=== PATIENT | male | born 1935 | race Caucasian/White ===

== ENCOUNTER 2016-12-02 16:42 | Inpatient (IN) | payer MEDICARE ==
[2016-12-02 17:15] LABS: BASOPHIL 0.4 % (0-2); EOSINOPHIL 2.5 % (0-7); HCT 34.1 % (42.0-52.0); HGB 11.5 g/dl (13.2-18.0); LYMPHOCYTE 9.1 % (15-48); MCH 31.4 pg (25.0-31.0); MCHC 33.7 g/dL (32.0-36.0); MCV 93.2 fL (78.0-100.0); MONOCYTE 12.8 % (0-12); MPV 10.2 fL (6.0-9.5); NEUTROPHIL 75.2 % (41-80); PLT 176 K/uL (150-400); RBC 3.66 M/uL (4.70-6.00); RDW 13.4 % (11.5-14.0); WBC 2.4 K/uL (4.0-10.5)
[2016-12-02 17:24] LABS: LACTIC ACID 1.6 mmol/L (0.5-2.2)
[2016-12-02 17:25] LABS: CREATININE 0.9 mg/dL (0.7-1.2)
[2016-12-02 18:59] LABS: ALBUMIN 4.6 g/dL (3.4-4.8); BILIRUBIN - TOTAL 0.3 mg/dL (0.1-1.0); GLOBULIN (CALCULATION) 2.4 g/dL (2.2-4.2)
[2016-12-02 19:11] LABS: BILIRUBIN - DIRECT 0.2 mg/dL (0.0-0.2)
[2016-12-02 20:30] LABS: BILIRUBIN NEGATIVE (NEGATIVE); BLOOD TRACE-LYSED Ery/uL (NEGATIVE); CLARITY CLEAR (CLEAR); COLOR YELLOW (YELLOW); GLUCOSE (U) TRACE mg/dL (NORMAL); KETONE (U) TRACE mg/dL (NEGATIVE); LEUKOCYTES NEGATIVE Leu/uL (NEGATIVE); NITRITE NEGATIVE (NEGATIVE); PROTEIN NEGATIVE (NEGATIVE); SPECIFIC GRAVITY >=1.030 (1.001-1.030)
[2016-12-02 20:35] LABS: SQUAMOUS EPITHELIAL CELLS RARE; URINARY RBC RARE
[2016-12-03 05:19] LABS: BASOPHIL 0.4 % (0-2); EOSINOPHIL 0.8 % (0-7); HCT 29.8 % (42.0-52.0); LYMPHOCYTE 15.5 % (15-48); MCH 31.3 pg (25.0-31.0); MCHC 33.6 g/dL (32.0-36.0); MCV 93.4 fL (78.0-100.0); MONOCYTE 21.4 % (0-12); MPV 9.7 fL (6.0-9.5); NEUTROPHIL 61.9 % (41-80); PLT 148 K/uL (150-400); RBC 3.19 M/uL (4.70-6.00); RDW 13.1 % (11.5-14.0); WBC 2.5 K/uL (4.0-10.5)
[2016-12-03 05:40] LABS: MAGNESIUM 1.39 mg/dL (1.40-2.10); POTASSIUM 3.5 mmol/L (3.5-5.1)
[2016-12-03 05:46] LABS: BAND 8 % (0-10)
[2016-12-03 05:47] LABS: EOSINOPHIL(M) 12 % (0-7); FT4 (FREE T4) 1.28 ng/dL (0.93-1.70); LYMPHOCYTE(M) 17 % (15-48); MONOCYTE(M) 11 % (0-12); NEUTROPHILS(M) 63 % (41-80); PLATELET ESTIMATE NORMAL; TSH (THYROID STIM HORMONE) 1.71 uIU/mL (0.270-4.200)
[2016-12-03 05:48] LABS: PLATELET MORPHOLOGY NORMAL
[2016-12-03 10:48] LABS: IRON 21 ug/dL (44-196); IRON % SATURATION 7 %SAT (20-50); RETICULOCYTE COUNT 0.9 % (1.0-2.0); TIBC (TOTAL IRON + UIBC) 283 U/L (228-428); UIBC 262 ug/dL (112-346)
[2016-12-04 05:48] LABS: BASOPHIL 0.4 % (0-2); EOSINOPHIL 4.3 % (0-7); HCT 28.2 % (42.0-52.0); HGB 9.6 g/dl (13.2-18.0); LYMPHOCYTE 20.3 % (15-48); MCH 31.6 pg (25.0-31.0); MCV 92.8 fL (78.0-100.0); MONOCYTE 19.6 % (0-12); MPV 10.3 fL (6.0-9.5); NEUTROPHIL 55.4 % (41-80); PLT 143 K/uL (150-400); RBC 3.04 M/uL (4.70-6.00); RDW 12.9 % (11.5-14.0)
[2016-12-04 05:49] LABS: WBC 2.8 K/uL (4.0-10.5)
[2016-12-04 06:05] LABS: BAND 6 % (0-10); EOSINOPHIL(M) 3 % (0-7); LYMPHOCYTE(M) 24 % (15-48); MONOCYTE(M) 12 % (0-12); NEUTROPHILS(M) 55 % (41-80); PLATELET ESTIMATE NORMAL; PLATELET MORPHOLOGY NORMAL
[2016-12-04 06:10] LABS: CREATININE 0.9 mg/dL (0.7-1.2); MAGNESIUM 1.35 mg/dL (1.40-2.10); POTASSIUM 3.6 mmol/L (3.5-5.1)
[2016-12-04] MEDS ORDERED: METFORMIN HCL1000 MG PO (13:29)
[2016-12-04] MEDS ORDERED: IRON PO (13:29)
[2016-12-04] MEDS ORDERED: ZESTRIL40 MG PO (13:29)
[2016-12-04] MEDS ORDERED: TRADJENTA5 MG PO (13:29)
[2016-12-04] MEDS ORDERED: ZOCOR40 M1 PO (13:30)
[2016-12-04] MEDS ORDERED: TOPROL XL 50 MG50 MG PO (13:30)
[2016-12-04] MEDS ORDERED: AMARYL4 MG PO (13:30)
[2016-12-04] MEDS ORDERED: HYCODAN5 ML PO (13:30)
== END 2016-12-04 12:35 | disposition home or self-care (01) | DRG 871 ==
LOC: FER 16:42 → FTCU 21:27 → FMS 12-03 13:24
PROVIDERS: Allergy & Immunology; Emergency Medicine; Internal Medicine Hematology & Oncology; Internal Medicine Nephrology; ADMIT Internal Medicine Adolescent Medicine
DX: A41.1 Sepsis due to other specified staphylococcus (principal); G93.41 Metabolic encephalopathy; J09.X2 Influenza due to identified novel influenza A virus with other respiratory manifestations; J44.0 Chronic obstructive pulmonary disease with (acute) lower respiratory infection; E11.9 Type 2 diabetes mellitus without complications; I10 Essential (primary) hypertension; F17.210 Nicotine dependence, cigarettes, uncomplicated; E78.5 Hyperlipidemia, unspecified; K21.9 Gastro-esophageal reflux disease without esophagitis; R91.8 Other nonspecific abnormal finding of lung field; J20.9 Acute bronchitis, unspecified; Z79.899 Other long term (current) drug therapy; Z83.3 Family history of diabetes mellitus; Z82.49 Family history of ischemic heart disease and other diseases of the circulatory system; Z80.9 Family history of malignant neoplasm, unspecified
CPT/HCPCS: 36415; 36600; 70450; 71020; 80048; 80076; 81001; 82607; 82728; 82803; 82962; 83540; 83550; 83605; 83735; 84439; 84443; 85025; 85044; 86403; 87040; 87077; 87088; 87804; 87899; 93005; 94010; 94640; J2405; J2543

== ENCOUNTER 2017-01-01 19:11 | Inpatient (IN) | payer MEDICARE ==
[~2017-01-01 19:11] MED LIST: AMARYL4 MG PO; HYCODAN5 ML PO; IRON PO; METFORMIN HCL1000 MG PO; TOPROL XL 50 MG50 MG PO; TRADJENTA5 MG PO; ZESTRIL40 MG PO; ZOCOR40 M1 PO
[2017-01-01 20:01] LABS: HCT 38.1 % (42.0-52.0); HGB 13.4 g/dl (13.2-18.0); MCH 31.3 pg (25.0-31.0); MCHC 35.2 g/dL (32.0-36.0); MPV 10.5 fL (6.0-9.5); RBC 4.28 M/uL (4.70-6.00); RDW 13.5 % (11.5-14.0); WBC 12.3 K/uL (4.0-10.5)
[2017-01-01 20:28] LABS: INR 1.14 (0.9-1.2); PROTHROMBIN TIME 14.2 SECONDS (11.7-14.0); PTT 25.8 SECONDS (23.2-31.4)
[2017-01-01 20:37] LABS: ALBUMIN 4.1 g/dL (3.4-4.8); BILIRUBIN - TOTAL 0.6 mg/dL (0.1-1.0); CREATININE 0.9 mg/dL (0.7-1.2); GLOBULIN (CALCULATION) 3.6 g/dL (2.2-4.2); POTASSIUM 4.6 mmol/L (3.5-5.1); TOTAL PROTEIN 7.7 g/dL (6.4-8.3)
[2017-01-01 20:43] LABS: D-DIMER 7.95 ug/mLFEU (0.00-0.41)
[2017-01-01 21:13] LABS: BILIRUBIN 2+ mg/dL (NEGATIVE); BLOOD TRACE-INTACT Ery/uL (NEGATIVE); CLARITY HAZY (CLEAR); COLOR YELLOW (YELLOW); GLUCOSE (U) 2+ mg/dL (NORMAL); KETONE (U) NEGATIVE (NEGATIVE); LEUKOCYTES NEGATIVE Leu/uL (NEGATIVE); NITRITE NEGATIVE (NEGATIVE); PROTEIN 2+ mg/dL (NEGATIVE); SPECIFIC GRAVITY >=1.030 (1.001-1.030)
[2017-01-01 21:21] LABS: AMORPHOUS URATES CRYSTALS MODERATE; MUCOUS TRACE; URINARY RBC RARE
[2017-01-02 04:40] LABS: BASOPHIL 0.3 % (0-2); EOSINOPHIL 0.3 % (0-7); HCT 34.9 % (42.0-52.0); HGB 12.3 g/dl (13.2-18.0); LYMPHOCYTE 11.3 % (15-48); MCH 31.3 pg (25.0-31.0); MCHC 35.2 g/dL (32.0-36.0); MCV 88.8 fL (78.0-100.0); MONOCYTE 12.1 % (0-12); MPV 10.1 fL (6.0-9.5); PLT 216 K/uL (150-400); RBC 3.93 M/uL (4.70-6.00); RDW 13.2 % (11.5-14.0); WBC 7.1 K/uL (4.0-10.5)
[2017-01-02 04:58] LABS: CREATININE 0.9 mg/dL (0.7-1.2); POTASSIUM 4.4 mmol/L (3.5-5.1)
[2017-01-02 05:01] LABS: CKMB 4.2 ng/mL (0.97-4.94); TROPONIN T 0.039 ng/mL
[2017-01-02 11:03] LABS: CKMB 4.01 ng/mL (0.97-4.94); TROPONIN T 0.021 ng/mL
[2017-01-03 04:18] LABS: HCT 32.9 % (42.0-52.0); HGB 11.3 g/dl (13.2-18.0); MCH 30.9 pg (25.0-31.0); MCHC 34.3 g/dL (32.0-36.0); MCV 89.9 fL (78.0-100.0); MPV 10.5 fL (6.0-9.5); RBC 3.66 M/uL (4.70-6.00); RDW 13.6 % (11.5-14.0); WBC 8.9 K/uL (4.0-10.5)
[2017-01-03 05:38] LABS: CREATININE 0.7 mg/dL (0.7-1.2); MAGNESIUM 1.28 mg/dL (1.40-2.10); POTASSIUM 3.7 mmol/L (3.5-5.1)
== END 2017-01-03 14:49 | disposition other institution (70) | DRG 309 ==
LOC: FER 19:11 → FICU 22:49
PROVIDERS: Emergency Medicine; ADMIT Internal Medicine
DX: I48.0 Paroxysmal atrial fibrillation (principal); C34.90 Malignant neoplasm of unspecified part of unspecified bronchus or lung; C79.51 Secondary malignant neoplasm of bone; C78.1 Secondary malignant neoplasm of mediastinum; C77.9 Secondary and unspecified malignant neoplasm of lymph node, unspecified; E86.0 Dehydration; I10 Essential (primary) hypertension; E11.9 Type 2 diabetes mellitus without complications; J44.9 Chronic obstructive pulmonary disease, unspecified; F17.210 Nicotine dependence, cigarettes, uncomplicated; I71.4 Abdominal aortic aneurysm, without rupture; K44.9 Diaphragmatic hernia without obstruction or gangrene; Z79.82 Long term (current) use of aspirin; E78.5 Hyperlipidemia, unspecified; R32 Unspecified urinary incontinence; C10.4 Malignant neoplasm of branchial cleft; Z80.7 Family history of other malignant neoplasms of lymphoid, hematopoietic and related tissues; M19.90 Unspecified osteoarthritis, unspecified site; K21.9 Gastro-esophageal reflux disease without esophagitis
CPT/HCPCS: 36415; 36600; 70450; 71010; 71275; 80048; 80053; 81001; 82550; 82553; 82803; 82962; 83735; 84443; 84484; 85025; 85379; 85610; 85730; 93005; 94010; J3475; Q9967